=== PATIENT | female | born 1965 | race American Indian/Alaskan Native ===

== ENCOUNTER 2021-06-06 14:19 | Emergency (ER) | payer OTHER ==
[2021-06-06 14:32] VITALS: BP 139/85
--- NOTE | 2021-06-06 16:39 | Emergency Department Report ---
ED Fall HPI - General Chief Complaint: Fall Stated Complaint: FALL INJURY/HEAD Source: patient Mode of arrival: Ambulatory - History of Present Illness Initial Comments: 56-year-old female presents to the ED complaining of a headache ,right palm pain and backache after walking down steps and missed a step and fell down to stay. Patient states that she hit her head and passed out. Patient states that her head is has a headache 8 out of 10. States that the palm of her hand feels sore no obvious deformity no distracting injury noted to right hand. Patient states lower backache stiffness. Patient is ambulatory. Tenderness noted on examination. Patient states back pain is a 0 out of 10 at present. She denies taking any prior medication to arrival to ED. Patient is ambulatory. Patient is alert and oriented x3. No acute distress noted. No ill appearance noted MD Complaint: fall Onset/Timin -: hour(s) When Fall Occurred: 4-6 hours BACK LINE COOK Fall Witnessed: yes, by family Place Fall Occurred: home Loss of Consciousness: yes Prolonged Down Time?: unclear Symptoms Prior to Fall: none Location: head Severity scale (0 -10): 8 Quality: aching Context: tripped/slipped Associated Symptoms: denies - Related Data Previous Rx's Medication Instructions Recorded Last Taken Type Naproxen [Naprosyn] 500 mg PO BID 15 Days #30 tablet 06/06/21 Unknown Rx methOCARBAMOL [Robaxin TAB] 750 mg PO Q8H PRN 15 Days #30 tab 06/06/21 Unknown Rx Allergies Allergy/AdvReac Type Severity Reaction Status Date / Time No Known Allergies Allergy Unverified 06/06/21 14:28 ED Review of Systems ROS: Stated complaint: FALL INJURY/HEAD Other details as noted in HPI Constitutional: denies: chills, fever Eyes: denies: eye pain, eye discharge, vision change ENT: denies: ear pain, throat pain Respiratory: denies: cough, shortness of breath, wheezing Cardiovascular: denies: chest pain, palpitations Endocrine: no symptoms reported Gastrointestinal: denies: abdominal pain, nausea, diarrhea Genitourinary: denies: urgency, dysuria, discharge Musculoskeletal: denies: back pain, joint swelling, arthralgia Skin: denies: rash, lesions Neurological: denies: headache, weakness, paresthesias Psychiatric: denies: anxiety, depression Hematological/Lymphatic: denies: easy bleeding, easy bruising ED Past Medical Hx - Medications Home Medications: Home Medications Medication Instructions Recorded Confirmed Last Taken Type Naproxen [Naprosyn] 500 mg PO BID 15 Days #30 tablet 06/06/21 Unknown Rx methOCARBAMOL [Robaxin TAB] 750 mg PO Q8H PRN 15 Days #30 tab 06/06/21 Unknown Rx ED Physical Exam - General Limitations: No Limitations General appearance: alert, in no apparent distress - Head Head exam: Present: atraumatic, normocephalic - Eye Eye exam: Present: normal appearance - ENT ENT exam: Present: mucous membranes moist - Neck Neck exam: Present: normal inspection - Respiratory Respiratory exam: Present: normal lung sounds bilaterally. Absent: respiratory distress - Cardiovascular Cardiovascular Exam: Present: regular rate, normal rhythm. Absent: systolic murmur, diastolic murmur, rubs, gallop - GI/Abdominal GI/Abdominal exam: Present: soft, normal bowel sounds - Extremities Exam Extremities exam: Present: normal inspection - Back Exam Back exam: Present: normal inspection - Neurological Exam Neurological exam: Present: alert, oriented X3 - Psychiatric Psychiatric exam: Present: normal affect, normal mood - Skin Skin exam: Present: warm, dry, intact, normal color. Absent: rash ED Course Vital Signs 06/06/21 14:29 Temperature 97.9 F Pulse Rate 75 Respiratory 20 Rate Blood Pressure 139/85 O2 Sat by Pulse 100 Oximetry ED Medical Decision Making - Radiology Data [place] [id number] Cat Scan Report Signed Patient: EL FLORES MR#: [id number] : 1965 Acct:[id number] Age/Sex: 56 / F ADM Date: 06/06/21 Loc: ED Attending Dr: Ordering Physician: DAKOTA UNDERWOOD Date of Service: 06/06/21 Procedure(s): CT head/brain wo con Accession Number(s): [id number] cc: DAKOTA UNDERWOOD NONENHANCED CT SCAN OF THE HEAD: INDICATION / CLINICAL INFORMATION: 56 years Female; fall down stairs , headache, positive LOC. TECHNIQUE: Routine CT head without contrast. All CT scans at this location are performed using CT dose reduction for ALARA by means of automated exposure control. COMPARISON: None. FINDINGS: BRAIN / INTRACRANIAL CONTENTS: No intracranial sequela from the trauma; no scalp hematoma; no fluid level in the paranasal sinuses No acute hemorrhage, mass effect, midline shift, hydrocephalus, or acute, large territorial infarct. No chronic infarct or focal atrophy. Normal brain volume and ventricular/sulcal size for age. No significant white matter abnormality. CRANIOCERVICAL JUNCTION: No significant abnormality. ORBITS: No significant abnormality of visualized orbits. SINUSES / MASTOIDS: No significant abnormality of the visualized paranasal sinuses or mastoid air cells. ADDITIONAL FINDINGS: None. IMPRESSION: No intracranial sequela from the trauma; no acute focal parenchymal lesion in the brain Signer Name: Williams Yuan MD Signed: 06/06/2021 5:10 PM Workstation Name: [id number] Transcribed By: CHRISTY Dictated By: Williams Escoto MD Electronically Authenticated By: Williams Escoto MD Signed Date/Time: 06/06/211709 DD/ 05 TD/TT: - Medical Decision Making 56-year-old female presents to the ED complaining of a headache ,right palm pain and backache after walking down steps and missed a step and fell down to stay. Patient states that she hit her head and passed out. Patient states that her head is has a headache 8 out of 10. States that the palm of her hand feels sore no obvious deformity no distracting injury noted to right hand. Patient states lower backache stiffness. Patient is ambulatory. Tenderness noted on examination. Patient states back pain is a 0 out of 10 at present. She denies taking any prior medication to arrival to ED. Patient is ambulatory. Patient is alert and oriented x3. No acute distress noted. No ill appearance noted Physical examination unremarkable. CT report shows no abnormality. Rechecked the patient is resting quietly quietly and comfortable and feeling better. I discussed the results of diagnostic study, my clinical impression and the plan for further treatment with the patient. Patient agrees with plan and discharge at this present time. All question addressed. I have given the patient instruction regarding a diagnosis ,expectation ,follow- up and return precaution. I explained to the patient that emergent condition may arise and to return to the ED for new worsen and any new persisting condition. I have explained the importance of following up with the primary care physician or referral physician listed below has instructed. The patient verbalized understanding of discharge instruction. Critical care attestation.: If time is entered above; I have spent that time in minutes in the direct care of this critically ill patient, excluding procedure time. ED Disposition Clinical Impression: Fall Qualifiers: Encounter type: initial encounter Qualified Code(s): W19.XXXA - Unspecified fall, initial encounter Headache Qualifiers: Headache type: post-traumatic Disposition: HOME / SELF CARE / HOMELESS Is pt being admited?: No Does the pt Need Aspirin: No Condition: Stable Instructions: Tension Headache, Adult, [id number] Additional Instructions: Return to ED for any worsening symptoms Take [id number] Tylenol for pain Prescriptions: Naproxen [Naprosyn] 500 mg PO BID 15 Days #30 tablet methOCARBAMOL [Robaxin TAB] 750 mg PO Q8H PRN 15 Days #30 tab PRN Reason: Muscle Spasm Referrals: BLANCHE FELIZ MD [Primary Care Provider] - 3-5 Days LILA CHAPIN II, MD [Staff Physician] - 3-5 Days Forms: Work/School Release Form(ED)
--- NOTE | 2021-06-06 17:15 | Cat Scan Report ---
NONENHANCED CT SCAN OF THE HEAD: INDICATION / CLINICAL INFORMATION: 56 years Female; fall down stairs , headache, positive LOC. TECHNIQUE: Routine CT head without contrast. All CT scans at this location are performed using CT dos e reduction for ALARA by means of automated exposure control. COMPARISON: None. FINDINGS: BRAIN / INTRACRANIAL CONTENTS: No intracranial sequela from the trauma; no scalp hematoma; no fluid l evel in the paranasal sinuses No acute hemorrhage, mass effect, midline shift, hydrocephalus, or acute, large territorial infarct. No chronic infarct or focal atrophy. Normal brain volume and ventricular/sulcal size for age. No sig nificant white matter abnormality. CRANIOCERVICAL JUNCTION: No significant abnormality. ORBITS: No significant abnormality of visualized orbits. SINUSES / MASTOIDS: No significant abnormality of the visualized paranasal sinuses or mastoid air kacie ls. ADDITIONAL FINDINGS: None. IMPRESSION: No intracranial sequela from the trauma; no acute focal parenchymal lesion in the brain Signer Name: Williams Yuan MD Signed: 06/06/2021 5:10 PM Workstation Name: [id number]
== END 2021-06-06 18:16 | disposition home or self-care (01) ==
LOC: ED 14:19
DX: R51.9 Headache, unspecified (principal); W10.8XXA Fall (on) (from) other stairs and steps, initial encounter; Y93.89 Activity, other specified; Y92.89 Other specified places as the place of occurrence of the external cause; Y99.8 Other external cause status
CPT/HCPCS: 70450; 99283